=== PATIENT | male | born 1965 | race Caucasian/White ===

== ENCOUNTER 2017-09-16 03:32 | Emergency (ER) | payer MEDICAID ==
[2017-09-16] MEDS: DIPHTH/TET/ACEL PERTUSS (ADULT) 0.5 ML VIAL IM* (04:01)
[2017-09-16] MEDS: HYDROCODONE/APAP (10/325) TAB PO (04:01)
== END 2017-09-16 05:36 | disposition home or self-care (01) ==
LOC: E/R 03:32
DX: S01.01XA Laceration without foreign body of scalp, initial encounter (principal); Y08.89XA Assault by other specified means, initial encounter; Z23 Encounter for immunization
CPT/HCPCS: 12013; 70450; 90471; 90715; 99284-25

== ENCOUNTER 2017-09-16 15:07 | Emergency (ER) | payer MEDICAID ==
[2017-09-16] MEDS: KETOROLAC 30 MG INJ IM (16:56)
== END 2017-09-16 18:14 | disposition home or self-care (01) ==
LOC: FTE 15:07
DX: S49.92XA Unspecified injury of left shoulder and upper arm, initial encounter (principal); Y09 Assault by unspecified means
CPT/HCPCS: 73030; 96372; 99284-25